=== PATIENT | male | born 1970 | race African-American/Black ===

== ENCOUNTER 2022-08-10 15:42 | Emergency (ER) | payer MEDICAID ==
[~2022-08-10] VITALS: Ht 185.4 cm; Wt 111.0 kg
[~2022-08-10 15:42] MED LIST: AMLO5TAB16 PO; CHLO25TA10 PO; METO-395 PO; ZOLP10TA PO
[2022-08-10 16:03] VITALS: BP 183/106
[2022-08-10 17:35] LABS: BASOPHILS # (AUTO) 0.1 X10'3 (0-0.2); BASOPHILS % (AUTO) 1.3 % (0-1); EOSINOPHILS # (AUTO) 0.1 X10'3 (0-0.9); EOSINOPHILS % (AUTO) 1.3 % (0-6); HEMATOCRIT 42.5 % (42.0-52.0); HEMOGLOBIN 14.1 g/dl (14.0-17.9); LYMPHOCYTES # (AUTO) 1.7 X10'3 (1.1-4.8); MEAN CORPUSCULAR HEMOGLOBIN 29.3 PG (27.0-31.0); MEAN CORPUSCULAR HGB CONC 33.2 g/dL (33.0-36.5); MEAN CORPUSCULAR VOLUME 88.5 FL (78-98); MEAN PLATELET VOLUME 9.2 FL (7.4-10.4); MONOCYTES # (AUTO) 0.5 X10'3 (0-0.9); MONOCYTES % (AUTO) 8.7 % (2-12); NEUTROPHILS # (AUTO) 3.9 X10'3 (1.8-7.7); NEUTROPHILS % (AUTO) 61.7 % (42-75); PLATELET COUNT 234 X10'3 (140-440); RED BLOOD COUNT 4.81 X10'6 (4.70-6.10); RED CELL DISTRIBUTION WIDTH 14.7 % (11.5-14.5); WHITE BLOOD COUNT 6.3 X10'3 (4.5-11.0)
[2022-08-10 17:51] LABS: ALANINE AMINOTRANSFERASE 25 U/L (12-78); ALBUMIN 3.8 G/DL (3.4-5.0); ALBUMIN/GLOBULIN RATIO 0.9 (1.1-1.5); ALKALINE PHOSPHATASE 87 IU/L (46-116); ANION GAP 10 (8-16); ASPARTATE AMINO TRANSFERASE 17 U/L (10-37); BILIRUBIN,TOTAL 0.3 MG/DL (0.1-1.0); BLOOD UREA NITROGEN 7 MG/DL (7-18); BUN/CREATININE RATIO 7.4 (5.4-32.0); C-REACTIVE PROTEIN 0.49 MG/DL (0.0-0.5); CALCIUM 9.1 MG/DL (8.5-10.1); CHLORIDE 107 MMOL/L (99-107); CREATININE 0.95 MG/DL (0.60-1.10); GLUCOSE 96 MG/DL (70-104); POTASSIUM 3.8 MMOL/L (3.5-5.1); SODIUM 143 MMOL/L (135-145); TOTAL PROTEIN 7.9 G/DL (6.4-8.2); eGFR > 90 ML/MIN
[2022-08-10] MEDS ORDERED: HYDROcodone/acetaminophen 5mg/325mg tablet PO ONE ×2 (18:15→18:55)
[2022-08-10] MEDS ORDERED: HYDR-3965 PO (19:06)
== END 2022-08-10 19:29 | disposition home or self-care (01) ==
LOC: ER 15:42
DX: M19.031 Primary osteoarthritis, right wrist (principal); M79.641 Pain in right hand; Z87.448 Personal history of other diseases of urinary system; Z88.5 Allergy status to narcotic agent
CPT/HCPCS: 29125; 36415; 73130; 80053; 85025; 85651; 86140; 99284

== ENCOUNTER 2022-08-11 12:10 | Emergency (ER) | payer MEDICAID ==
[~2022-08-11] VITALS: Ht 185.4 cm; Wt 111.4 kg
[~2022-08-11 12:10] MED LIST changes: +HYDR-3965 PO
[2022-08-11 13:10] VITALS: BP 166/110
== END 2022-08-11 14:33 | disposition home or self-care (01) ==
LOC: ER 12:10
DX: M79.601 Pain in right arm (principal); M79.89 Other specified soft tissue disorders; Z87.442 Personal history of urinary calculi; Z79.899 Other long term (current) drug therapy; Z88.5 Allergy status to narcotic agent
CPT/HCPCS: 99281

== ENCOUNTER 2023-08-17 10:30 | Emergency (ER) | payer MEDICAID ==
[~2023-08-17] VITALS: Ht 185.4 cm; Wt 120.0 kg
[~2023-08-17 10:30] MED LIST changes: -HYDR-3965 PO
[2023-08-17 11:37] LABS: BASOPHILS # (AUTO) 0.1 X10'3 (0-0.2); BASOPHILS % (AUTO) 0.9 % (0-1); EOSINOPHILS # (AUTO) 0.1 X10'3 (0-0.9); EOSINOPHILS % (AUTO) 1.5 % (0-6); HEMATOCRIT 43.3 % (42.0-52.0); HEMOGLOBIN 14.3 g/dl (14.0-17.9); LYMPHOCYTES # (AUTO) 1.6 X10'3 (1.1-4.8); LYMPHOCYTES % (AUTO) 25.6 % (21-51); MEAN CORPUSCULAR HEMOGLOBIN 29.1 PG (27.0-31.0); MEAN CORPUSCULAR VOLUME 88.2 FL (78-98); MEAN PLATELET VOLUME 9.4 FL (7.4-10.4); MONOCYTES # (AUTO) 0.6 X10'3 (0-0.9); MONOCYTES % (AUTO) 9.7 % (2-12); NEUTROPHILS % (AUTO) 62.3 % (42-75); PLATELET COUNT 238 X10'3 (140-440); RED BLOOD COUNT 4.91 X10'6 (4.70-6.10); WHITE BLOOD COUNT 6.4 X10'3 (4.5-11.0)
[2023-08-17 11:55] LABS: ALANINE AMINOTRANSFERASE 25 U/L (12-78); ALBUMIN 3.6 G/DL (3.4-5.0); ALBUMIN/GLOBULIN RATIO 0.9 (1.1-1.5); ALKALINE PHOSPHATASE 99 IU/L (46-116); ANION GAP 7 (8-16); ASPARTATE AMINO TRANSFERASE 17 U/L (10-37); BILIRUBIN,TOTAL 0.8 MG/DL (0.1-1.0); BLOOD UREA NITROGEN 8 MG/DL (7-18); CHLORIDE 105 MMOL/L (99-107); GLUCOSE 88 MG/DL (70-104); POTASSIUM 3.8 MMOL/L (3.5-5.1); SODIUM 138 MMOL/L (135-145); TOTAL CARBON DIOXIDE 26.3 MMOL/L (24-32); TOTAL PROTEIN 7.7 G/DL (6.4-8.2); eCRCL 99 ML/MIN; eGFR > 90 ML/MIN
[2023-08-17] MEDS ORDERED: fentaNYL/PF 50MCG/1 ML 2ML syringe IV ONE (18:35)
[2023-08-17] MEDS ORDERED: iohexol 300mg/ml 100ml inj. ONE (18:52)
[2023-08-17 19:00] VITALS: TEMP 98.1
[2023-08-17] MEDS ORDERED: morphine 4 MG/ML inj SYRINge IV ONE (19:40)
[2023-08-17] MEDS ORDERED: ondansetron/PF 4mg/2ml inj IV ONE (19:40)
[2023-08-17] MEDS ORDERED: ketorolac trometh. 30mg/ml inj. IV ONE (19:50)
[2023-08-17] MEDS ORDERED: POLY17PO10 PO (19:51)
--- NOTE | 2023-08-17 20:16 | NUR ---
provider aware of bradycardia. medications to be given regardless Addendum: 08/17/23 at 2017 by DIMA medications to be given
[2023-08-17 22:00] VITALS: BP 180/102; PULSE 51; RESP 14; O2SAT 100
--- NOTE | 2023-08-17 22:00 | NUR ---
provider aware of htn prior to dc
== END 2023-08-17 22:02 | disposition home or self-care (01) ==
LOC: ER 10:31
DX: K64.9 Unspecified hemorrhoids (principal); R59.0 Localized enlarged lymph nodes; K62.5 Hemorrhage of anus and rectum
CPT/HCPCS: 36415; 74177; 80053; 85025; 96374; 96375; 99285; J1885; J2270; J2405; J3490; Q9967

== ENCOUNTER 2025-01-12 11:29 | Emergency (ER) | payer MEDICAID ==
[~2025-01-12] VITALS: Ht 185.4 cm; Wt 113.2 kg
[2025-01-12 11:50] LABS: BILIRUBIN,URINE NEGATIVE (Neg); CLARITY,URINE CLEAR (Clear); COLOR,URINE YELLOW (Yellow); GLUCOSE, URINE NEGATIVE (Neg); KETONES,URINE NEGATIVE (Neg); LEUKOCYTE ESTERASE ,URINE NEGATIVE (Neg); NITRITES, URINE NEGATIVE (Neg); OCCULT BLOOD,URINE MODERATE (Neg); PH,URINE 6.5 (4.8-8.0); PROTEIN,URINE NEGATIVE (Neg)
[2025-01-12 11:53] LABS: UA COLLECTION TYPE CLN CATCH MIDSTREAM
[2025-01-12 11:55] LABS: BACTERIA,URINE NONE SEEN /HPF (Neg); MUCUS STRANDS NONE SEEN /LPF (Neg); RBC,URINE 0-2 /HPF (0-2); SQUAMOUS EPITHELIAL CELL,UR FEW /LPF (FEW); WBC,URINE NONE SEEN /HPF (0-4)
[2025-01-12 12:24] LABS: BASOPHILS # (AUTO) 0.1 X10'3 (0-0.2); BASOPHILS % (AUTO) 1.3 % (0-1); EOSINOPHILS # (AUTO) 0.1 X10'3 (0-0.9); EOSINOPHILS % (AUTO) 1.7 % (0-6); HEMATOCRIT 42.2 % (42.0-52.0); HEMOGLOBIN 13.9 g/dl (14.0-17.9); LYMPHOCYTES # (AUTO) 1.2 X10'3 (1.1-4.8); LYMPHOCYTES % (AUTO) 21.4 % (21-51); MEAN CORPUSCULAR HEMOGLOBIN 29.3 PG (27.0-31.0); MEAN CORPUSCULAR HGB CONC 32.9 g/dL (33.0-36.5); MEAN CORPUSCULAR VOLUME 88.9 FL (78-98); MEAN PLATELET VOLUME 8.8 FL (7.4-10.4); MONOCYTES # (AUTO) 0.6 X10'3 (0-0.9); MONOCYTES % (AUTO) 11.4 % (2-12); NEUTROPHILS # (AUTO) 3.5 X10'3 (1.8-7.7); NEUTROPHILS % (AUTO) 64.2 % (42-75); PLATELET COUNT 249 X10'3 (140-440); RED BLOOD COUNT 4.75 X10'6 (4.70-6.10); RED CELL DISTRIBUTION WIDTH 16.1 % (11.5-14.5); WHITE BLOOD COUNT 5.5 X10'3 (4.5-11.0)
[2025-01-12 12:40] LABS: ALANINE AMINOTRANSFERASE 29 U/L (12-78); ALBUMIN 3.6 G/DL (3.4-5.0); ALBUMIN/GLOBULIN RATIO 0.8 (1.1-1.5); ALKALINE PHOSPHATASE 112 IU/L (46-116); ANION GAP 4 (8-16); ASPARTATE AMINO TRANSFERASE 27 U/L (10-37); BILIRUBIN,TOTAL 0.2 MG/DL (0.1-1.0); BLOOD UREA NITROGEN 10 MG/DL (7-18); BUN/CREATININE RATIO 10.9 (10.0-20.0); CALCIUM 8.4 MG/DL (8.5-10.1); CHLORIDE 107 MMOL/L (99-107); CREATININE 0.92 MG/DL (0.60-1.10); GLUCOSE 91 MG/DL (70-104); LIPASE 17 U/L (16-77); POTASSIUM 3.6 MMOL/L (3.5-5.1); SODIUM 141 MMOL/L (135-145); TOTAL CARBON DIOXIDE 29.6 MMOL/L (24-32); eCRCL 105 ML/MIN; eGFR > 90 ML/MIN
[2025-01-12 13:17] VITALS: TEMP 98
[2025-01-12] MEDS: acetaminophen 1,000mg/100ml IV 100 ML IV ONE (14:13)
[2025-01-12] MEDS: ketorolac trometh 30MG/ML vial 30 MG/ML VIAL IV ONE (14:13)
[2025-01-12] MEDS: tamsulosin 0.4mg capsule PO ONE (14:14)
[2025-01-12 16:10] VITALS: BP 167/110; PULSE 89; RESP 15; O2SAT 98
[2025-01-12] MEDS ORDERED: tamsulosin 0.4mg capsule PO SCH (21:00)
[2025-01-13] MEDS ORDERED: tamsulosin 0.4mg capsule PO SCH (21:00)
== END 2025-01-12 16:25 | disposition home or self-care (01) ==
LOC: ER 11:30
DX: R10.84 Generalized abdominal pain (principal); R31.9 Hematuria, unspecified; Z88.5 Allergy status to narcotic agent; Z79.899 Other long term (current) drug therapy; Z87.442 Personal history of urinary calculi
CPT/HCPCS: 36415; 74176; 80053; 81001; 83690; 85025; 96365; 96375; 99285; J0131; J1885

== ENCOUNTER 2025-05-19 19:14 | Emergency (ER) | payer MEDICAID ==
[~2025-05-19] VITALS: Ht 185.4 cm; Wt 114.0 kg
[~2025-05-19 19:14] MED LIST changes: +ZOLP-679 PO; -ZOLP10TA PO
[2025-05-19 19:30] VITALS: TEMP 98.1
--- NOTE | 2025-05-19 19:35 | Physician Documentation ---
History of Present Illness Stated Complaint: ABD PAIN Time Seen by MD: 19:27 Primary Medical Doctor: [facility] Source: patient, EMS, EMS notes reviewed Mode of Arrival: EMS HPI Chief Complaint: Abdominal pain, flank pain Caveat: Some confusion Independent Historians: Brother, paramedics History of Present Illness: Patient is a 55-year-old man coming from home via paramedics. Patient had sudden left upper quadrant abdominal pain radiating to the left flank. This began approximately 30 minutes prior to arrival. Paramedics gave Zofran 4 mg IV and Toradol 15 mg IV. Patient has had associated nausea and vomiting. Patient also states that he is having vertigo. Patient states that he has had vertigo before but it is worse at this time. In route the patient was confused according to the medics patient did not know where he was and thought he was being taken home. Patient is oriented now. Patient appears somnolent. Review of systems: All systems were reviewed and are negative except for what is indicated in the history of present illness. Past Medical History: Hypertension Past Surgical History: Noncontributory Social History: Occasional alcohol, patient had some matt beer earlier. No tobacco use, no drug use Medications: Reviewed as documented Nursing Notes Allergies: Reviewed as documented in Nursing Notes Medication Reconciliation Allergies: Coded Allergies: morphine (Verified Allergy, Unknown, hyperactive, 08/10/22) Scheduled Amlodipine Besylate (Amlodipine Besylate), 1 TAB PO DAILY, (Reported) Chlorthalidone (Chlorthalidone), 1 TAB PO DAILY, (Reported) Metoprolol Succinate (Metoprolol Succinate), 1 TAB PO DAILY, (Reported) Tamsulosin Hcl* (Flomax*), 1 CAP PO DAILY Scheduled PRN Hydrocodone Bit/Acetaminophen (Hydrocodone-Apap 10-325 Tablet), 1 TAB PO TID PRN for pain Zolpidem Tartrate (Ambien), 1 TAB PO HS PRN for sleep, (Reported) Past Medical History Past Medical History: Kidney Stones Past Surgical History: noncontributory Alcohol Use: Other Drug Use: none Lives In: Home Review of Systems All Other Systems at this time: Reviewed and Negative ROS Patient denies any other acute symptoms other than above. All other systems are negative Physical Exam Vital Signs: RN Vital Signs have been reviewed: Yes Pulse Oximetry Reflects: adequate oxygenation Physical Exam General Appearance: Mild distress, somnolent HEENT: Normal OP, moist oral mucosa, PERRL, EOMI Neck: supple, normal ROM, trachea midline Pulmonary: No respiratory distress, CTA, BS equal Cardiac: RRR, no murmur, rub or gallop, GI: nondistended, soft, diffuse left upper quadrant and left abdominal tenderness, normal bowel sounds, no guarding, no rebound Extremities: normal ROM, no swelling, non-tender Skin: intact, dry, warm, no rashes Neuro: Somnolent, not oriented to place, speech is clear, no focal motor weakness Psych: normal affect, good eye contact, no apparent hallucination, normal speech Progress Results/Orders Results/Orders Orders - POPEYE QUINN MD Cbc/Diff (05/19/25 19:27) Lipase (05/19/25 19:27) Urinalysis, Cult If Indicated (05/19/25:27) Normal Saline Bolus (05/19/25 19:30) Ct Abdomen Pelvis (05/19/25 19:27) BMP (05/19/25:27) Monitor (05/19/25 19:27) Saline Lock (05/19/25 19:27) Nothing By Mouth (05/20/25 Dinner) Chest,Single View (05/19/25 19:27) Ct Head (05/19/25 19:27) Ethanol (05/19/25 19:27) Drug Screen, Urine (05/19/25 19:27) Medical Decision Making Findings Differential diagnosis includes but is not limited to: Ureteral colic, renal colic, nephrolithiasis, perforated viscus Chest x-ray, single view, indication: Hypertension, abdominal pain Independent interpretation: Lungs are clear, mild cardiomegaly, normal mediastinum, no acute cardiopulmonary process Abdomen and pelvis CT scan without IV contrast, indication: Abdominal pain and flank pain Impression: There is a 3 mm calculus at the left ureterovesical orifice causing mild left hydroureteronephrosis. Head CT without IV contrast, indication: Vertigo, ALOC Impression: No acute intracranial abnormality. Laboratory data independent interpretation: CBC: Hemoglobin just below normal at 13.3, otherwise unremarkable CMP: Mild elevated creatinine of 1.22, otherwise unremarkable Toxicology: Urine drug screen is negative, alcohol negative Urinalysis: WBC, 0, RBC 20-50 Emergency department course/medical decision-making: Patient is a 55-year-old man who comes in somnolent and in severe pain. However suspect the patient was quiet and confused because he also had severe vertigo. Patient is given Toradol 15 mg IM for pain, Zofran 4 mg IV and morphine [address] scan shows a small 3 mm left distal ureteral stone. This is what is causing his pain, nausea and vomiting. The treatment improved his symptoms significantly. Patient is also given 1 L of normal saline. Patient is also given [place] 10 mg p.o. at discharge. He is given a prescription for [place] and Flomax. All is discussed with the patient and his brother. He is instructed to return if symptoms worsen. Patient is stable for discharge. 8:45 p.m.: Patient re-evaluated. Patient is still having his vertigo. Patient's pain is currently 7/10. Patient will be ordered some morphine. 10:30 p.m.: Patient re-evaluated. Patient is feeling much better. Departure Time of Disposition: 21:48 Disposition: HOME / SELF CARE / HOMELESS Impression: Primary Impression: Ureterolithiasis Additional Impressions: Ureteral colic Hydronephrosis Qualified Codes: N13.2 - Hydronephrosis with renal and ureteral calculous obstruction Condition: Improved Discharge Instructions: Hydronephrosis, Kidney Stones, [id number], Renal Colic, [id number] Additional Instructions: YOU HAVE A VERY SMALL STONE IN THE DISTAL URETER. THIS SHOULD PASS ON ITS OWN. HE HAS SOME VERY MILD HYDRONEPHROSIS IN THE LEFT KIDNEY CAUSE BY THE SMALL STONE. THERE IS NO INDICATION FOR INTERVENTION. TREATMENT IS PAIN MEDICATION AND FLOMAX UNTIL THE STONE HAS PASSED. IT IS ALMOST IN THE BLADDER. TAKE THE MEDICATIONS PRESCRIBED. NO DRIVING WHILE TAKING THE NORCO THIS MAY CAUSE DROWSINESS. RECOMMEND YOU TAKE MOTRIN 600 MG EVERY 8 HOURS WITH FOOD FOR YOUR PAIN. TAKE THE NORCO FOR SEVERE BREAKTHROUGH PAIN. Prescriptions Tamsulosin Hcl* (Flomax*) 0.4 Mg Cap.sr.24h 1 CAP PO DAILY, #10 CAP Prov: POPEYE QUINN MD 05/19/25 Hydrocodone Bit/Acetaminophen (Hydrocodone-Apap 10-325 Tablet) 10mg/325mg Tablet 1 TAB PO TID PRN for pain, #20 TAB Prov: POPEYE QUINN MD 05/19/25 Education Educated: Patient Educated regarding: diagnosis, treatment, need for follow up Signature Scribe Signature: No scribe Attestation: No scribe POPEYE QUINN MD May 19, 2025 19:35
[2025-05-19 20:07] LABS: MEAN PLATELET VOLUME 9.2 FL (7.4-10.4); RED CELL DISTRIBUTION WIDTH 16.0 % (11.5-14.5)
[2025-05-19] MEDS: normal saline 1000ML IV soln IVB ONE (20:11)
[2025-05-19 20:18] LABS: CREATININE 1.22 MG/DL (0.60-1.10); TOTAL CARBON DIOXIDE 24.1 MMOL/L (24-32); eCRCL 79 ML/MIN; eGFR 75 ML/MIN
[2025-05-19 20:25] LABS: ETHANOL < 10 MG/DL (<10)
--- NOTE | 2025-05-19 20:31 | RADIOLOGY REPORT ---
COMPUTERIZED TOMOGRAPHY OF THE HEAD WITHOUT CONTRAST REASON FOR STUDY: aloc COMPARISON: None TECHNIQUE: Helical tomographic scans were obtained through the brain. 2-D coronal and sagittal refor matted images are provided. Radiation optimization: All CT scans at this facility use at least one of these dose optimization techniques: Automated exposure control mA and/or kV adjustment per patient s ize (includes targeted exams where dose is matched to clinical indication) or iterative reconstructio n. RADIATION DOSE: CTDI: 62 mGy DLP: 1161 mGy-cm FINDINGS: No suspicious intracranial hyperdensity to suggest acute blood. There is no mass effect n or midline shift. There is no hydrocephalus. The suprasellar cistern is intact. The calvarium is int act. The visualized mastoid air cells and paranasal sinuses are clear. IMPRESSION: No acute intracranial abnormality.
--- NOTE | 2025-05-19 20:41 | RADIOLOGY REPORT ---
COMPUTERIZED TOMOGRAPHY ABDOMEN AND PELVIS WITHOUT CONTRAST REASON FOR EXAM: Abdominal Pain COMPARISON: CT CT ABDOMEN PELVIS on DOS: 01/12/25, CT CT ABDOMEN PELVIS on DOS: 08/17/23, CT ABDOMEN P DARIN on DOS: 05/14/22 TECHNIQUE: Spiral scans were acquired from the diaphragm to the symphysis pubis without intravenous c ontrast administration. 2-D coronal and sagittal reformatted images were provided. Radiation optimiza tion: All CT scans at this facility use at least one of these dose optimization techniques: Automated exposure control mA and/or kV adjustment per patient size (includes targeted exams where dose is mat ched to clinical indication) or iterative reconstruction. RADIATION DOSE: CTDI: 33 mGy DLP: 1764 mGy-cm FINDINGS: There is minimal dependent atelectasis in bilateral lower lobes of the lungs. There is no pleural ef fusion. There is no pericardial effusion. The spleen is not enlarged. The liver is normal in size and contour. No calcified gallstone is ident ified. Evaluation of the abdominal organs is suboptimal in the absence of intravenous contrast. Unen hanced appearance of the pancreas is unremarkable. The adrenal glands are normal. There is moderate l eft perinephric stranding. The kidneys are similar in size. There is mild left hydroureteronephrosis . There is a 2 mm calculus at the left ureterovesical orifice. The urinary bladder is otherwise unre markable. No additional renal, ureteral, or bladder calculus is identified. The prostate and seminal vesicles are within normal limits. There is no abdominal aortic aneurysm. No free fluid is identifie d in the abdomen or pelvis. There are a few subcentimeter lymph nodes in the retroperitoneum and pelv is. There is no pathologic distention of the small bowel. The appendix is within normal limits. The colonic stool burden is small. No acute osseous abnormality is identified. There is severe disc heig ht loss with vacuum phenomenon at L5-S1. IMPRESSION: There is a 3 mm calculus at the left ureterovesical orifice causing mild left hydroureteronephrosis.
[2025-05-19 21:39] LABS: LEUKOCYTE ESTERASE ,URINE NEGATIVE (Neg); NITRITES, URINE NEGATIVE (Neg); OCCULT BLOOD,URINE LARGE (Neg)
[2025-05-19] MEDS: ondansetron/PF 4mg/2ml inj IV ONE (21:39)
[2025-05-19 21:40] LABS: UA COLLECTION TYPE CLN CATCH MIDSTREAM
[2025-05-19] MEDS: morphine 4 MG/ML inj SYRINge IV ONE (21:41)
[2025-05-19 21:45] LABS: SQUAMOUS EPITHELIAL CELL,UR NONE SEEN /LPF (FEW)
[2025-05-19] MEDS ORDERED: TAMS-55 PO (21:51)
[2025-05-19] MEDS ORDERED: HYDR-3973 PO (21:51)
--- NOTE | 2025-05-19 21:53 | RADIOLOGY REPORT ---
EXAMINATION: AP portable chest radiograph CLINICAL HISTORY: aloc COMPARISON: None FINDINGS: Multiple wires overlie the thorax, partially obscuring evaluation. Central vascular redistribution. No lobar consolidation is identified. No definite pleural effusions or pneumothorax. The cardiomediastinal silhouette appears within normal limits given technique. IMPRESSION: Limited study. Pulmonary vascular congestion.
[2025-05-19 21:58] LABS: URINE AMPHETAMINE SCREEN NEGATIVE (Neg); URINE BARBITUATE SCREEN NEGATIVE (Neg); URINE BENZODIAZEPINES SCREEN NEGATIVE (Neg); URINE CANNABINOID SCREEN NEGATIVE (Neg); URINE COCAINE SCREEN NEGATIVE (Neg); URINE METHADONE SCREEN NEGATIVE (Neg); URINE OPIATE SCREEN NEGATIVE (Neg); URINE PHENCYCLIDINE SCREEN NEGATIVE (Neg)
[2025-05-19] MEDS: HYDROcodone/acetaminophen 10/325mg tab PO ONE (22:43)
[2025-05-19 23:03] VITALS: BP 149/87; PULSE 65; RESP 18; O2SAT 97
== END 2025-05-19 23:05 | disposition home or self-care (01) ==
LOC: ER 19:15
DX: N13.2 Hydronephrosis with renal and ureteral calculous obstruction (principal); R11.2 Nausea with vomiting, unspecified; R42 Dizziness and giddiness; I10 Essential (primary) hypertension; Z88.5 Allergy status to narcotic agent; Z79.899 Other long term (current) drug therapy; Z87.442 Personal history of urinary calculi
CPT/HCPCS: 36415; 70450; 71045; 74176; 80048; 80305; 80320; 81001; 83690; 85025; 96361; 96374; 96375; 99285; J2270; J2405; J7030; J8597